=== PATIENT | female | born 1990 | race African-American/Black ===

== ENCOUNTER 2017-03-03 14:06 | Emergency (ER) | payer SELFPAY ==
[~2017-03-03] VITALS: Ht 157.5 cm; Wt 84.0 kg
[~2017-03-03 14:06] MED LIST: DICY1TAB26 PO; LOMO PO; ZOFR4TAB3 SL
[2017-03-03 14:07] VITALS: BP 132/62; PULSE 75; RESP 16; TEMP 97.6; O2SAT 100
--- NOTE | 2017-03-03 16:59 | PD ---
HPI Chief Complaint: Abdominal Pain Time Seen by Provider: 16:50 Travel History International Travel<30 days: No Contact w/Intl Traveler<30days: No Traveled to known affect area: No History of Present Illness HPI Patient comes in complaining of lower abdominal pain more on the left. Pain began around 4:00 this morning. Patient states when she initially woke she noted pain radiating to her low back that has since resolved. Patient states that she took Zantac and she thought this might be her gastritis flaring up. Patient denies anything making the pain worse. Denies any fevers, nausea, vomiting, diarrhea, loss change of bladder, vaginal discharge, chest pain, or shortness of breath. PFSH Past Medical History Diabetes: No Diminished Hearing: No Gastrointestinal Disorders: Yes (Gastritis) Genitourinary: No Immune Disorder: No Musculoskeletal: No ?: Not LMP: 03/02/17 Menopausal: No : 0 Para: 0 Past Surgical History Other Surgery: Yes (cyst removal posterior right ear) Social History Alcohol Use: Yes (occ.) Tobacco Use: Yes (1.5 PPD) Substance Use: Yes (MARIJUANA) Allergies-Medications (Allergen,Severity, Reaction): Coded Allergies: acetaminophen (Verified Allergy, Intermediate, 03/03/17) oxycodone (Verified Allergy, Intermediate, 03/03/17) Reported Meds & Prescriptions Reported Meds & Active Scripts Active Review of Systems Except as stated in HPI: all other systems reviewed are Neg Physical Exam Narrative GENERAL: Well-developed, overly nourished, in no acute distress, and non-ill appearing. SKIN: Focused skin assessment warm and dry. HEAD: Atraumatic. Normocephalic. EYES: Pupils equal and round. EOMI. No scleral icterus. No injection or drainage. ENT: No nasal bleeding or discharge. Mucous membranes pink and moist. NECK: Trachea midline. Supple. No nuclear rigidity. CARDIOVASCULAR: Regular rate and rhythm. No murmur appreciated. RESPIRATORY: No accessory muscle use. No respiratory distress. Clear to auscultation. Breath sounds equal bilaterally. GASTROINTESTINAL: Abdomen soft, non-tender, nondistended, and no guarding. Hepatic and splenic margins not palpable. Normal bowel sounds 4. No pulsatile mass. MUSCULOSKELETAL: No obvious deformities. No clubbing. No cyanosis. No edema. Full range of motion. NEUROLOGICAL: Awake and alert. No obvious cranial nerve deficits. Motor grossly within normal limits. Normal speech. PSYCHIATRIC: Appropriate mood and affect; insight and judgment normal. Data Data Last Documented VS Vital Signs Date Time Temp Pulse Resp B/P (MAP) Pulse Ox O2 Delivery O2 Flow Rate FiO2 03/03/17 18:43 03/03/17 14:07 97.6 75 16 100 Room Air Orders Orders Complete Blood Count With Diff (03/03/17 16:51) Comprehensive Metabolic Panel (03/03/17 16:51) Lipase (03/03/17 16:51) Urinalysis - C+S If Indicated (03/03/17 16:51) Iv Access Insert/Monitor (03/03/17 16:51) Ecg Monitoring (03/03/17 16:51) Oximetry (03/03/17 16:51) Sodium Chloride 0.9% Flush (Ns Flush) (03/03/17 17:00) Ed Urine Pregnancytest Poc (03/03/17 16:51) Ed Discharge Order (03/03/17 18:06) Labs Laboratory Tests Test 03/03/17 17:00 03/03/17 17:02 White Blood Count 7.4 TH/MM3 Red Blood Count 5.04 MIL/MM3 Hemoglobin 15.0 GM/DL Hematocrit 44.8 % Mean Corpuscular Volume 88.9 FL Mean Corpuscular Hemoglobin 29.7 PG Mean Corpuscular Hemoglobin Concent 33.5 % Red Cell Distribution Width 14.3 % Platelet Count 230 TH/MM3 Mean Platelet Volume 10.7 FL Neutrophils (%) (Auto) 56.3 % Lymphocytes (%) (Auto) 30.8 % Monocytes (%) (Auto) 5.5 % Eosinophils (%) (Auto) 6.3 % Basophils (%) (Auto) 1.1 % Neutrophils # (Auto) 4.2 TH/MM3 Lymphocytes # (Auto) 2.3 TH/MM3 Monocytes # (Auto) 0.4 TH/MM3 Eosinophils # (Auto) 0.5 TH/MM3 Basophils # (Auto) 0.1 TH/MM3 CBC Comment DIFF FINAL Differential Comment Blood Urea Nitrogen 12 MG/DL Creatinine 0.67 MG/DL Random Glucose 67 MG/DL Total Protein 8.4 GM/DL Albumin 4.0 GM/DL Calcium Level 8.9 MG/DL Alkaline Phosphatase 68 U/L Aspartate Amino Transf (AST/SGOT) 19 U/L Alanine Aminotransferase (ALT/SGPT) 29 U/L Total Bilirubin 0.2 MG/DL Sodium Level 139 MEQ/L Potassium Level 3.7 MEQ/L Chloride Level 109 MEQ/L Carbon Dioxide Level 25.8 MEQ/L Anion Gap 4 MEQ/L Estimat Glomerular Filtration Rate 126 ML/MIN Lipase 138 U/L Urine Color YELLOW Urine Turbidity HAZY Urine pH 6.0 Urine Specific [place] 1.025 Urine Protein NEG mg/dL Urine Glucose (UA) NEG mg/dL Urine Ketones NEG mg/dL Urine Occult Blood TRACE Urine Nitrite NEG Urine Bilirubin NEG Urine Urobilinogen LESS THAN 2.0 MG/DL Urine Leukocyte Esterase SMALL Urine RBC LESS THAN 1 /hpf Urine WBC 2 /hpf Urine Squamous Epithelial Cells 1 /hpf Urine Mucus MANY /lpf Microscopic Urinalysis Comment CULT NOT INDICATED MDM Medical Decision Making Medical Screen Exam Complete: Yes Emergency Medical Condition: Yes Differential Diagnosis UTI, , metabolic sermons, dehydration, constipation, other Narrative Course Patient was offered pelvic exam to evaluate for any possible STDs, PID, cervicitis. Patient is declining at this time and states she is one [facility] department to be checked. The patient presented with nonspecific abdominal pain. There was no significant history of vomiting or diarrhea and no fever. The patient appeared comfortable, well hydrated and the abdominal exam was unremarkable and nontender to me. Laboratory evaluation revealed no significant abnormalities. There was no evidence of an acute, surgical abdomen at this time. There was no clinical evidence to support appendicitis, bowel obstruction, cholecystitis/ cholelithiasis, pancreatitis, perforation of gastric ulcer, colitis, diverticulitis, bacterial peritonitis, obstruction, volvulus, hernial incarceration or strangulation at this time. There was no evidence to support vascular pathology such as AAA, mesenteric ischemia. There was also no clinical evidence by history, exam or risk factors to suggest atypical presentation of cardiac disease such as ACS, AMI or atypical angina. No evidence to suggest genitourinary etiology as well. Clinical picture was discussed with the patient , as well as plan of care. The patient was instructed to follow up with their physician. Abdominal pain warnings were discussed with the patient. The patient is to return if worsens, pain worsens or changes, develop fever, inability to tolerate fluids with or without vomiting, unable to establish follow up or as needed. The patient agrees with plan. Patient in no obvious distress upon re-evaluation. All pertinent laboratory result(s) discussed with patient. Discussed patient with Dr. Hagen prior discharge, who is in agreement with plan of care and disposition. Any questions /concerns in reference to patient diagnosis/condition discussed and clarified prior to patient's discharge. Reinforced sheer importance of close follow up with patient's primary physician or primary care clinic and/or health Department. Instructed patient to return to ED immediately, if symptoms return/ worsen. Patient showed understanding of above instructions. Further instructions and recommendations were detailed in discharge paperwork. Patient ambulated without difficulty out of ED at discharge. Diagnosis Primary Impression: Abdominal pain Qualified Codes: R10.30 - Lower abdominal pain, unspecified Referrals: [facility] Patient Instructions: Abdominal Pain (ED), General Instructions Additional Instructions: Follow-up with your primary care physician and/or the health Department next week for reevaluation. Use [id number] Tylenol and/or ibuprofen as needed for pain. Follow instructions on the packaging. Return to the emergency department if symptoms get worse.s Disposition: 01 DISCHARGE HOME Condition: Stable Paulo Ryan Mar 03, 2017 16:59
[2017-03-03] MEDS ORDERED: SODIUM CHLORIDE 0.9% FLUSH 10 ML FLUSH IV FLUSH PRN (17:00)
[2017-03-03 17:27] LABS: AUTOMATED NEUTROPHIL # 4.2 TH/MM3 (1.8-7.7); BASOPHIL # 0.1 TH/MM3 (0-0.2); BASOPHIL % 1.1 % (0.0-2.0); EOSINOPHIL # 0.5 TH/MM3 (0-0.4); EOSINOPHIL % 6.3 % (0.0-4.0); HEMATOCRIT 44.8 % (35.0-46.0); HEMO FLAGS DIFF FINAL; LYMPH % 30.8 % (9.0-44.0); LYMPHOCYTE # 2.3 TH/MM3 (1.0-4.8); MEAN CELL VOLUME 88.9 FL (80.0-100.0); MEAN CORPUSCULAR HEMOGLOBIN 29.7 PG (27.0-34.0); MEAN CORPUSCULAR HGB CONC 33.5 % (32.0-36.0); MONO % 5.5 % (0.0-8.0); NEUT % 56.3 % (16.0-70.0); PLATELET COUNT 230 TH/MM3 (150-450); RED BLOOD COUNT 5.04 MIL/MM3 (4.00-5.30); RED CELL DISTRIBUTION WIDTH 14.3 % (11.6-17.2); WHITE BLOOD COUNT 7.4 TH/MM3 (4.0-11.0)
[2017-03-03 17:38] LABS: BLOOD, URINE TRACE (NEG); COMMENT (UR) CULT NOT INDICATED; CULTURE IF INDICATED CULT NOT INDICATED; GLUCOSE,URINE NEG (NEG); KETONE, URINE NEG (NEG); MUCUS URINE MANY /lpf (OCC); NITRITE,URINE NEG (NEG); SQUAMOUS EPITHELIAL CELL URINE 1 /hpf (0-5); URINE COLOR YELLOW (YELLW/STRAW)
[2017-03-03 17:49] LABS: ALT (GPT) 29 U/L (10-53); ANION GAP 4 MEQ/L (5-15); AST (GOT) 19 U/L (15-37); BICARBONATE 25.8 MEQ/L (21.0-32.0); BLOOD UREA NITROGEN 12 MG/DL (7-18); CHLORIDE 109 MEQ/L (98-107); GLOMERULAR FILTRATION RATE 126 ML/MIN (>89); POTASSIUM 3.7 MEQ/L (3.5-5.1); SODIUM (NA) 139 MEQ/L (136-145)
[2017-03-03 17:51] LABS: ALKALINE PHOSPHATASE 68 U/L (45-117); TOTAL BILIRUBIN ADULT 0.2 MG/DL (0.2-1.0)
--- NOTE | 2017-03-03 17:53 | PD ---
Physical Exam Date Seen by Provider: Mar 03, 2017 Narrative Patient presents with a chief complaint of lower abdominal pain. Data Data Last Documented VS Vital Signs Date Time Temp Pulse Resp B/P (MAP) Pulse Ox O2 Delivery O2 Flow Rate FiO2 03/03/17 14:07 97.6 75 16 132/62 (85) 100 Room Air Orders Orders Complete Blood Count With Diff (03/03/17 16:51) Comprehensive Metabolic Panel (03/03/17 16:51) Lipase (03/03/17 16:51) Urinalysis - C+S If Indicated (03/03/17 16:51) Iv Access Insert/Monitor (03/03/17 16:51) Ecg Monitoring (03/03/17 16:51) Oximetry (03/03/17 16:51) Sodium Chloride 0.9% Flush (Ns Flush) (03/03/17 17:00) Ed Urine Pregnancytest Poc (03/03/17 16:51) Labs Laboratory Tests Test 03/03/17 17:00 03/03/17 17:02 White Blood Count 7.4 TH/MM3 Red Blood Count 5.04 MIL/MM3 Hemoglobin 15.0 GM/DL Hematocrit 44.8 % Mean Corpuscular Volume 88.9 FL Mean Corpuscular Hemoglobin 29.7 PG Mean Corpuscular Hemoglobin Concent 33.5 % Red Cell Distribution Width 14.3 % Platelet Count 230 TH/MM3 Mean Platelet Volume 10.7 FL Neutrophils (%) (Auto) 56.3 % Lymphocytes (%) (Auto) 30.8 % Monocytes (%) (Auto) 5.5 % Eosinophils (%) (Auto) 6.3 % Basophils (%) (Auto) 1.1 % Neutrophils # (Auto) 4.2 TH/MM3 Lymphocytes # (Auto) 2.3 TH/MM3 Monocytes # (Auto) 0.4 TH/MM3 Eosinophils # (Auto) 0.5 TH/MM3 Basophils # (Auto) 0.1 TH/MM3 CBC Comment DIFF FINAL Differential Comment Blood Urea Nitrogen 12 MG/DL Creatinine 0.67 MG/DL Random Glucose 67 MG/DL Total Protein 8.4 GM/DL Albumin 4.0 GM/DL Calcium Level 8.9 MG/DL Alkaline Phosphatase 68 U/L Aspartate Amino Transf (AST/SGOT) 19 U/L Alanine Aminotransferase (ALT/SGPT) 29 U/L Total Bilirubin 0.2 MG/DL Sodium Level 139 MEQ/L Potassium Level 3.7 MEQ/L Chloride Level 109 MEQ/L Carbon Dioxide Level 25.8 MEQ/L Anion Gap 4 MEQ/L Estimat Glomerular Filtration Rate 126 ML/MIN Lipase 138 U/L Urine Color YELLOW Urine Turbidity HAZY Urine pH 6.0 Urine Specific [place] 1.025 Urine Protein NEG mg/dL Urine Glucose (UA) NEG mg/dL Urine Ketones NEG mg/dL Urine Occult Blood TRACE Urine Nitrite NEG Urine Bilirubin NEG Urine Urobilinogen LESS THAN 2.0 MG/DL Urine Leukocyte Esterase SMALL Urine RBC LESS THAN 1 /hpf Urine WBC 2 /hpf Urine Squamous Epithelial Cells 1 /hpf Urine Mucus MANY /lpf Microscopic Urinalysis Comment CULT NOT INDICATED MDM Supervised Visit with [facility]: Yes Narrative Course I, Dr. Hagen, have reviewed the advance practice practitioner's documentation and am in agreement, met with the patient face to face, made the diagnosis, and the medical decision making was done by me. *My assessment and Findings: Patient has a soft abdomen. Please see John Ryan PA-C's note for results of laboratory and radiographic evaluation, ED course, final diagnosis and disposition Cassandra Hagen MD Mar 03, 2017 17:53
== END 2017-03-03 18:44 | disposition home or self-care (01) ==
LOC: NEPD 14:06
DX: R10.30 Lower abdominal pain, unspecified (principal); F17.200 Nicotine dependence, unspecified, uncomplicated; Z88.6 Allergy status to analgesic agent; Z88.5 Allergy status to narcotic agent
CPT/HCPCS: 80053; 81001; 83690; 84703; 85025; 99283